=== PATIENT | female | born 1970 | race Caucasian/White ===

== ENCOUNTER 2021-12-08 04:50 | Observation (INO) | payer MEDICARE, MEDICAID ==
[~2021-12-08] VITALS: Ht 175.3 cm; Wt 70.1 kg
[2021-12-08 05:10] LABS: BASO # 0.1 x10^3/uL (0.0-0.2); BASO % 1 % (0-3); EOS # 0.1 x10^3/uL (0.0-0.7); EOS % 1 % (0-3); HEMATOCRIT 39.4 % (36.0-47.0); HEMOGLOBIN 13.5 g/dL (12.0-15.5); LYMPH # 2.1 x10^3/uL (1.0-4.8); LYMPH % 22 % (24-48); MEAN CORPUSCULAR HEMOGLOBIN 32 pg (25-35); MEAN CORPUSCULAR HGB CONC 34 g/dL (31-37); MEAN CORPUSCULAR VOLUME 95 fL (79-100); MONO # 0.6 x10^3/uL (0.0-1.1); MONO % 7 % (0-9); NEUT # 6.9 x10^3/uL (1.8-7.7); NEUT % 71 % (31-73); PLATELET COUNT 345 x10^3/uL (140-400); RED BLOOD COUNT 4.16 x10^6/uL (3.50-5.40); RED CELL DISTRIBUTION WIDTH 14.4 % (11.5-14.5); WHITE BLOOD COUNT 9.7 x10^3/uL (4.0-11.0)
--- NOTE | 2021-12-08 05:11 | PHYS DOC ---
Adult General Chief Complaint Chief Complaint: DRUG ABUSE HPI HPI The patient is a 51-year-old female with a long history of methamphetamine abuse. She presents for evaluation of bizarre, agitated behavior out in the community. She was found acting strangely in front of a movie theater, claiming that she owned it. Vital signs and blood glucose appropriate for EMS. Ambulatory to her ED bed from the EMS cot without difficulty. Upon initial evaluation here, patient is hyperverbal, tangential, grandiose, makes a number of bizarre statements and appears to be under the influence of a psychostimulant. She does not provide any significant history. Appears disheveled and states she is homeless. There are no signs of any trauma. (KOFI BRITO MD) Review of Systems Review of Systems Review of systems not obtainable secondary to intoxicated patient. (KOFI BRITO MD) Current Medications Current Medications Current Medications Medications (Trade) Dose Ordered Sig/Sudhakar Start Time Stop Time Status Last Admin Dose Admin Haloperidol Lactate (Haldol Inj) 5 mg 1X ONCE 12/08/21 11:00 12/08/21 11:01 DC 12/08/21 11:09 5 MG Lorazepam (Ativan Inj) 2 mg 1X ONCE 12/08/21 11:00 12/08/21 11:01 DC 12/08/21 11:09 2 MG Multivitamins 10 ml/Thiamine HCl 100 mg/Folic Acid 1 mg/Sodium Chloride 1,011.2 ml @ 1,000.088 mls/hr 1X ONCE 12/08/21 12:00 12/08/21 13:00 12/08/21 12:16 1,000.088 MLS/HR Thiamine HCl (Thiamine Im) 100 mg 1X ONCE 12/08/21 11:00 12/08/21 11:01 DC Ziprasidone (Geodon Im) 10 mg 1X ONCE 12/08/21 05:15 12/08/21 05:16 DC 12/08/21 05:15 10 MG (JOSSUE JAMES DO) Allergies Allergies Allergies Coded Allergies Type Severity Reaction Last Updated Verified No Known Allergies Allergy Unknown 12/08/21 Yes (JOSSUE JAMES DO) Physical Exam Physical Exam 51-year-old female appearing nontoxic and in no acute distress, though acutely i ntoxicated. Head is normocephalic and atraumatic. Neck is supple and nontender. Oropharynx is moist. Lungs are clear to auscultation at all stations. There is a normal S1 and S2 without rubs or gallops and capillary refill is appropriate, less than 2 seconds globally. Abdomen is soft, nontender and nondistended. Skin is warm and dry without cyanosis, clubbing or edema. Psychiatrically, patient is tangential, grandiose, has pressured speech and makes a number of bizarre statements. (KOFI BRITO MD) Current Patient Data Vital Signs Vital Signs Date Time Temp Pulse Resp B/P (MAP) Pulse Ox O2 Delivery O2 Flow Rate FiO2 12/08/21 10:29 74 16 94/62 (73) 98 12/08/21 05:12 98.8 98.8 (JOSSUE JAMES DO) Lab Values Laboratory Tests Test 12/08/21 05:00 White Blood Count 9.7 x10^3/uL (4.0-11.0) Red Blood Count 4.16 x10^6/uL (3.50-5.40) Hemoglobin 13.5 g/dL (12.0-15.5) Hematocrit 39.4 % (36.0-47.0) Mean Corpuscular Volume 95 fL (79-100) Mean Corpuscular Hemoglobin 32 pg (25-35) Mean Corpuscular Hemoglobin Concent 34 g/dL (31-37) Red Cell Distribution Width 14.4 % (11.5-14.5) Platelet Count 345 x10^3/uL (140-400) Neutrophils (%) (Auto) 71 % (31-73) Lymphocytes (%) (Auto) 22 % (24-48) L Monocytes (%) (Auto) 7 % (0-9) Eosinophils (%) (Auto) 1 % (0-3) Basophils (%) (Auto) 1 % (0-3) Neutrophils # (Auto) 6.9 x10^3/uL (1.8-7.7) Lymphocytes # (Auto) 2.1 x10^3/uL (1.0-4.8) Monocytes # (Auto) 0.6 x10^3/uL (0.0-1.1) Eosinophils # (Auto) 0.1 x10^3/uL (0.0-0.7) Basophils # (Auto) 0.1 x10^3/uL (0.0-0.2) Sodium Level 137 mmol/L (136-145) Potassium Level 3.5 mmol/L (3.5-5.1) Chloride Level 101 mmol/L (98-107) Carbon Dioxide Level 27 mmol/L (21-32) Anion Gap 9 (6-14) Blood Urea Nitrogen 21 mg/dL (7-20) H Creatinine 0.7 mg/dL (0.6-1.0) Estimated GFR (Cockcroft-Gault) 88.6 BUN/Creatinine Ratio 30 (6-20) H Glucose Level 82 mg/dL (70-99) Calcium Level 9.4 mg/dL (8.5-10.1) Total Bilirubin 0.6 mg/dL (0.2-1.0) Aspartate Amino Transferase (AST) 13 U/L (15-37) L Alanine Aminotransferase (ALT) 12 U/L (14-59) L Alkaline Phosphatase 108 U/L (46-116) Total Protein 8.0 g/dL (6.4-8.2) Albumin 4.2 g/dL (3.4-5.0) Albumin/Globulin Ratio 1.1 (1.0-1.7) Salicylates Level 6.0 mg/dL (2.8-20.0) Salicylate Last Dose Date Unknown Salicylate Last Dose Time Unknown Acetaminophen Level < 2 mcg/ml (10-30) L Acetaminophen Last Dose Date Unknown Acetaminophen Last Dose Time Unknown Ethyl Alcohol Level < 10 mg/dL (0-10) Laboratory Tests 12/08/21 05:00 Laboratory Tests 12/08/21 05:00 (JOSSUE JAMES DO) Lab Values Laboratory Tests Test 12/08/21 05:00 White Blood Count 9.7 x10^3/uL (4.0-11.0) Red Blood Count 4.16 x10^6/uL (3.50-5.40) Hemoglobin 13.5 g/dL (12.0-15.5) Hematocrit 39.4 % (36.0-47.0) Mean Corpuscular Volume 95 fL (79-100) Mean Corpuscular Hemoglobin 32 pg (25-35) Mean Corpuscular Hemoglobin Concent 34 g/dL (31-37) Red Cell Distribution Width 14.4 % (11.5-14.5) Platelet Count 345 x10^3/uL (140-400) Neutrophils (%) (Auto) 71 % (31-73) Lymphocytes (%) (Auto) 22 % (24-48) L Monocytes (%) (Auto) 7 % (0-9) Eosinophils (%) (Auto) 1 % (0-3) Basophils (%) (Auto) 1 % (0-3) Neutrophils # (Auto) 6.9 x10^3/uL (1.8-7.7) Lymphocytes # (Auto) 2.1 x10^3/uL (1.0-4.8) Monocytes # (Auto) 0.6 x10^3/uL (0.0-1.1) Eosinophils # (Auto) 0.1 x10^3/uL (0.0-0.7) Basophils # (Auto) 0.1 x10^3/uL (0.0-0.2) Sodium Level 137 mmol/L (136-145) Potassium Level 3.5 mmol/L (3.5-5.1) Chloride Level 101 mmol/L (98-107) Carbon Dioxide Level 27 mmol/L (21-32) Anion Gap 9 (6-14) Blood Urea Nitrogen 21 mg/dL (7-20) H Creatinine 0.7 mg/dL (0.6-1.0) Estimated GFR (Cockcroft-Gault) 88.6 BUN/Creatinine Ratio 30 (6-20) H Glucose Level 82 mg/dL (70-99) Calcium Level 9.4 mg/dL (8.5-10.1) Total Bilirubin 0.6 mg/dL (0.2-1.0) Aspartate Amino Transferase (AST) 13 U/L (15-37) L Alanine Aminotransferase (ALT) 12 U/L (14-59) L Alkaline Phosphatase 108 U/L (46-116) Total Protein 8.0 g/dL (6.4-8.2) Albumin 4.2 g/dL (3.4-5.0) Albumin/Globulin Ratio 1.1 (1.0-1.7) Salicylates Level 6.0 mg/dL (2.8-20.0) Salicylate Last Dose Date Unknown Salicylate Last Dose Time Unknown Acetaminophen Level < 2 mcg/ml (10-30) L Acetaminophen Last Dose Date Unknown Acetaminophen Last Dose Time Unknown Ethyl Alcohol Level < 10 mg/dL (0-10) Laboratory Tests 12/08/21 05:00 Laboratory Tests 12/08/21 05:00 (KOFI BRITO MD) EKG EKG [] (KOFI BRITO MD) Radiology/Procedures Radiology/Procedures [] (KOFI BRITO MD) Radiology/Procedures CT HEAD/BRAIN WO History: Altered mental status. Comparison: None. Technique: Noncontrast CT imaging was performed of the head. Findings: No intracranial hemorrhage. No mass effect. No hydrocephalus. No evidence of acute territorial infarction. Imaged orbits are unremarkable. Left maxillary sinus mucous retention cyst or polyp. The scalp and calvarium are unremarkable. Impression: 1. No acute intracranial abnormality. (JOSSUE JAMES DO) Course & Med Decision Making Course & Med Decision Making Patient agitated and not verbally redirectable. Checking neuropsychiatric lab work as noted and will give IM Geodon to allow the patient to rest and sober. Will reevaluate when patient is clinically sober to determine best next steps in care. 0600: Transition of care at shift change to Dr. James. Patient resting comfortably in no acute distress after medication, verbalizing no new needs. (KOFI BRITO MD) Course & Med Decision Making Patient ambulated without difficulty and has returned back to her baseline. Upon discharge patient was started become agitated. Confabulating. Confused. Discussed with hospitalist. CT ordered. Tox pending (JOSSUE JAMES DO) Dragon Disclaimer Dragon Disclaimer This electronic medical record was generated, in whole or in part, using a voice recognition dictation system. (KOFI BRITO MD) Departure Departure Impression: Primary Impression: Amphetamine and psychostimulant abuse Condition: STABLE KOFI BRITO MD Dec 08, 2021 05:11 JOSSUE JAMES DO Dec 08, 2021 10:36
[2021-12-08] MEDS ORDERED: ZIPRASIDONE IM 20 MG VIAL. IM ONE (05:15)
[2021-12-08 05:18] LABS: CALCIUM 9.4 mg/dL (8.5-10.1); CREATININE 0.7 mg/dL (0.6-1.0); GFR 88.6; POTASSIUM 3.5 mmol/L (3.5-5.1)
[2021-12-08 05:23] LABS: ALBUMIN 4.2 g/dL (3.4-5.0); ALBUMIN/GLOBULIN RATIO 1.1 (1.0-1.7); TOTAL BILIRUBIN 0.6 mg/dL (0.2-1.0)
[2021-12-08 05:24] LABS: ACETAMIN < 2 mcg/ml (10-30); ETHANOL < 10 mg/dL (0-10)
[2021-12-08] MEDS ORDERED: THIAMINE IM 200 MG/2 ML VIAL. IM ONE (11:00)
[2021-12-08] MEDS ORDERED: HALOPERIDOL LACTATE 5 MG/ML VIAL. IM ONE (11:00)
--- NOTE | 2021-12-08 11:49 | RAD ---
CT HEAD/BRAIN WO History: Altered mental status. Comparison: None. Technique: Noncontrast CT imaging was performed of the head. Findings: No intracranial hemorrhage. No mass effect. No hydrocephalus. No evidence of acute territorial infar ction. Imaged orbits are unremarkable. Left maxillary sinus mucous retention cyst or polyp. The scalp and ca lvarium are unremarkable. Impression: 1. No acute intracranial abnormality. ----- Exposure: One or more of the following individualized dose reduction techniques were utilized for thi s examination: 1. Automated exposure control 2. Adjustment of the mA and/or kV according to patient size 3. Use of iterative reconstruction technique. Electronically signed by: Dong Tim MD (12/08/2021 11:47 AM) [id number]
[2021-12-08] MEDS ORDERED: MULTIVIT INFUSN,ADULT 4,VIT K 10 ML, THIAMINE INJ 100 MG, FOLIC ACID INJ 1 MG in IV NOR... IV ONE (12:00)
--- NOTE | 2021-12-08 12:24 | PDOC1 ---
History and Physical Date of Admission Date of Admission DATE: 12/08/21 TIME: 12:23 Current Problem List Problem List Problems Medical Problems: (1) Amphetamine and psychostimulant abuse Status: Acute (2) Methamphetamine abuse Status: Acute Current Medications Current Medications Current Medications Ziprasidone (Geodon Im) 10 mg 1X ONCE IM Last administered on 12/08/21at 05:15; Start 12/08/21 at 05:15; Stop 12/08/21 at 05:16; Status DC Haloperidol Lactate (Haldol Inj) 5 mg 1X ONCE IM Last administered on 2at 11:09; Start 12/08/21 at 11:00; Stop 12/08/21 at 11:01; Status DC Lorazepam (Ativan Inj) 2 mg 1X ONCE IM Last administered on 12/08/21at 11:09; Start 12/08/21 at 11:00; Stop 12/08/21 at 11:01; Status DC Thiamine HCl (Thiamine Im) 100 mg 1X ONCE IM ; Start 12/08/21 at 11:00; Stop 12/08/21 at 11:01; Status DC Multivitamins 10 ml/Thiamine HCl 100 mg/Folic Acid 1 mg/Sodium Chloride 1,011.2 ml @ 1,000.088 mls/hr 1X ONCE IV Last administered on 12/08/21at 12:16; Start 12/08/21 at 12:00; Stop 12/08/21 at 13:00 Allergies Allergies: Coded Allergies: No Known Allergies (Verified Allergy, Unknown, 12/08/21) Vitals Vitals Vital Signs Date Time Temp Pulse Resp B/P (MAP) Pulse Ox O2 Delivery O2 Flow Rate FiO2 12/08/21 10:29 74 16 94/62 (73) 98 12/08/21 05:12 98.8 98.8 Labs Labs Laboratory Tests Test 12/08/21 05:00 White Blood Count 9.7 x10^3/uL (4.0-11.0) Red Blood Count 4.16 x10^6/uL (3.50-5.40) Hemoglobin 13.5 g/dL (12.0-15.5) Hematocrit 39.4 % (36.0-47.0) Mean Corpuscular Volume 95 fL (79-100) Mean Corpuscular Hemoglobin 32 pg (25-35) Mean Corpuscular Hemoglobin Concent 34 g/dL (31-37) Red Cell Distribution Width 14.4 % (11.5-14.5) Platelet Count 345 x10^3/uL (140-400) Neutrophils (%) (Auto) 71 % (31-73) Lymphocytes (%) (Auto) 22 % (24-48) Monocytes (%) (Auto) 7 % (0-9) Eosinophils (%) (Auto) 1 % (0-3) Basophils (%) (Auto) 1 % (0-3) Neutrophils # (Auto) 6.9 x10^3/uL (1.8-7.7) Lymphocytes # (Auto) 2.1 x10^3/uL (1.0-4.8) Monocytes # (Auto) 0.6 x10^3/uL (0.0-1.1) Eosinophils # (Auto) 0.1 x10^3/uL (0.0-0.7) Basophils # (Auto) 0.1 x10^3/uL (0.0-0.2) Sodium Level 137 mmol/L (136-145) Potassium Level 3.5 mmol/L (3.5-5.1) Chloride Level 101 mmol/L (98-107) Carbon Dioxide Level 27 mmol/L (21-32) Anion Gap 9 (6-14) Blood Urea Nitrogen 21 mg/dL (7-20) Creatinine 0.7 mg/dL (0.6-1.0) Estimated GFR (Cockcroft-Gault) 88.6 BUN/Creatinine Ratio 30 (6-20) Glucose Level 82 mg/dL (70-99) Calcium Level 9.4 mg/dL (8.5-10.1) Total Bilirubin 0.6 mg/dL (0.2-1.0) Aspartate Amino Transf (AST/SGOT) 13 U/L (15-37) Alanine Aminotransferase (ALT/SGPT) 12 U/L (14-59) Alkaline Phosphatase 108 U/L (46-116) Total Protein 8.0 g/dL (6.4-8.2) Albumin 4.2 g/dL (3.4-5.0) Albumin/Globulin Ratio 1.1 (1.0-1.7) Salicylates Level 6.0 mg/dL (2.8-20.0) Salicylate Last Dose Date Unknown Salicylate Last Dose Time Unknown Acetaminophen Level < 2 mcg/ml (10-30) Acetaminophen Last Dose Date Unknown Acetaminophen Last Dose Time Unknown Ethyl Alcohol Level < 10 mg/dL (0-10) Laboratory Tests Test 12/08/21 05:00 White Blood Count 9.7 x10^3/uL (4.0-11.0) Red Blood Count 4.16 x10^6/uL (3.50-5.40) Hemoglobin 13.5 g/dL (12.0-15.5) Hematocrit 39.4 % (36.0-47.0) Mean Corpuscular Volume 95 fL (79-100) Mean Corpuscular Hemoglobin 32 pg (25-35) Mean Corpuscular Hemoglobin Concent 34 g/dL (31-37) Red Cell Distribution Width 14.4 % (11.5-14.5) Platelet Count 345 x10^3/uL (140-400) Neutrophils (%) (Auto) 71 % (31-73) Lymphocytes (%) (Auto) 22 % (24-48) Monocytes (%) (Auto) 7 % (0-9) Eosinophils (%) (Auto) 1 % (0-3) Basophils (%) (Auto) 1 % (0-3) Neutrophils # (Auto) 6.9 x10^3/uL (1.8-7.7) Lymphocytes # (Auto) 2.1 x10^3/uL (1.0-4.8) Monocytes # (Auto) 0.6 x10^3/uL (0.0-1.1) Eosinophils # (Auto) 0.1 x10^3/uL (0.0-0.7) Basophils # (Auto) 0.1 x10^3/uL (0.0-0.2) Sodium Level 137 mmol/L (136-145) Potassium Level 3.5 mmol/L (3.5-5.1) Chloride Level 101 mmol/L (98-107) Carbon Dioxide Level 27 mmol/L (21-32) Anion Gap 9 (6-14) Blood Urea Nitrogen 21 mg/dL (7-20) Creatinine 0.7 mg/dL (0.6-1.0) Estimated GFR (Cockcroft-Gault) 88.6 BUN/Creatinine Ratio 30 (6-20) Glucose Level 82 mg/dL (70-99) Calcium Level 9.4 mg/dL (8.5-10.1) Total Bilirubin 0.6 mg/dL (0.2-1.0) Aspartate Amino Transf (AST/SGOT) 13 U/L (15-37) Alanine Aminotransferase (ALT/SGPT) 12 U/L (14-59) Alkaline Phosphatase 108 U/L (46-116) Total Protein 8.0 g/dL (6.4-8.2) Albumin 4.2 g/dL (3.4-5.0) Albumin/Globulin Ratio 1.1 (1.0-1.7) Salicylates Level 6.0 mg/dL (2.8-20.0) Salicylate Last Dose Date Unknown Salicylate Last Dose Time Unknown Acetaminophen Level < 2 mcg/ml (10-30) Acetaminophen Last Dose Date Unknown Acetaminophen Last Dose Time Unknown Ethyl Alcohol Level < 10 mg/dL (0-10) Justifications for Admission Other Justification EVITA ARCEO MD Dec 08, 2021 12:24
[2021-12-08 15:00] VITALS: BP 90/54
[2021-12-08] MEDS ORDERED: HALOPERIDOL LACTATE 5 MG/ML VIAL. IVP PRN (18:30)
[2021-12-08] MEDS ORDERED: HALOPERIDOL LACTATE 5 MG/ML VIAL. IM PRN (18:30)
--- NOTE | 2021-12-08 18:43 | NUR ---
Pt eating dinner, asked RN what State she was in and where she was. RN answered patients questions.
[2021-12-08 19:00] VITALS: BP 84/42
[2021-12-08 23:00] VITALS: BP 105/56
[2021-12-09 03:00] VITALS: BP 82/42
[2021-12-09 07:00] VITALS: BP 90/54
--- NOTE | 2021-12-09 07:48 | PDOC ---
[employer] PROGRESS NOTE Date of Service DOS: DATE: 12/09/21 TIME: 07:47 Vitals/I&O Vitals/I&O: Vital Signs Date Time Temp Pulse Resp B/P (MAP) Pulse Ox O2 Delivery O2 Flow Rate FiO2 12/09/21 03:00 98.4 80 20 82/42 (55) 95 Room Air 98.4 I & O 12/08/21 12/08/21 12/09/21 15:00 23:00 07:00 Intake Total 100 ml 300 ml Balance 100 ml 300 ml Labs Labs: Laboratory Tests Test 12/08/21 12:04 Ammonia < 10 mcmol/L (11-34) Assessment and Plan Assessmemt and Plan Problems Medical Problems: (1) Amphetamine and psychostimulant abuse Status: Acute (2) Encephalopathy Status: Acute (3) Methamphetamine abuse Status: Acute Comment Review of Relevant I have reviewed the following items juvencio (where applicable) has been applied. Medications: Current Medications Medications (Trade) Dose Ordered Sig/Sudhakar Route PRN Reason Start Time Stop Time Status Last Admin Dose Admin Haloperidol Lactate (Haldol Inj) 5 mg 1X ONCE IM 12/08/21 11:00 12/08/21 15:02 DC 12/08/21 11:09 Lorazepam (Ativan Inj) 2 mg 1X ONCE IM 12/08/21 11:00 12/08/21 11:01 DC 12/08/21 11:09 Multivitamins 10 ml/Thiamine HCl 100 mg/Folic Acid 1 mg/Sodium Chloride 1,011.2 ml @ 1,000.088 mls/hr 1X ONCE IV 12/08/21 12:00 12/08/21 13:00 DC 12/08/21 12:16 Justifications for Admission Other Justification EVITA ARCEO MD Dec 09, 2021 07:47
[2021-12-09] MEDS ORDERED: ACETAMINOPHEN 325 MG TABLET. PO PRN (08:00)
[2021-12-09] MEDS ORDERED: guaiFENesin DM 200MG/20MG 10 ML SYRUP PO PRN (08:00)
[2021-12-09] MEDS ORDERED: ONDANSETRON PF 4 MG/2 ML VIAL. IVP PRN (08:00)
--- NOTE | 2021-12-09 10:29 | NUR ---
SS following for discharge planning. SS reviewed pt chart and discussed with pt RN. Pt is currently on room air. History of substance use. Pt leaving AMA per RN.
== END 2021-12-09 10:32 | disposition home or self-care (01) ==
LOC: ER 04:50 → 5 NORTH 12:26 → INTOOBSV 12:26
PROVIDERS: ADMIT Internal Medicine; ATTEND Internal Medicine
DX: F15.10 Other stimulant abuse, uncomplicated (principal); F10.129 Alcohol abuse with intoxication, unspecified; F19.10 Other psychoactive substance abuse, uncomplicated; G93.40 Encephalopathy, unspecified; Z59.00 Homelessness unspecified; Z79.899 Other long term (current) drug therapy
CPT/HCPCS: 36415; 70450; 80053; 80329; 82140; 85025; 96365; 96372; 99284; G0378; G0480; J1630; J2060; J3411; J3486; J3490; J7030; G0379